=== PATIENT | male | born 1985 | race African-American/Black ===

== ENCOUNTER 2020-09-26 17:14 | Inpatient (IN) | payer OTHER ==
[~2020-09-26] VITALS: Ht 165.1 cm; Wt 59.5 kg
[2020-09-26 17:22] VITALS: BP 119/76
[2020-09-26 18:05] LABS: BASO % 0.2 % (0.0-1.0); HEMATOCRIT 40.9 % (42.0-52.0); LYMPH # 1.2 10*3/uL (1.3-4.4); LYMPH % 22.8 % (27.0-41.0); MEAN CELL VOLUME 87.2 fl (80.0-94.0); MEAN CORPUSCULAR HGB 28.4 pg (27.0-31.0); MEAN CORPUSCULAR HGB CONC 32.5 g/dl (33.0-37.0); MEAN PLATELET VOLUME 9.7 fl (9.6-12.3); MONO # 0.3 10*3/uL (0.1-1.0); MONO % 6.5 % (3.0-9.0); NEUT # 3.7 10*3/uL (2.3-7.9); NEUT % 70.3 % (47.0-73.0); PLATELET COUNT AUTOMATED 295 10*3/uL (130-400); RED BLOOD COUNT 4.69 10*6/uL (4.50-5.90); RED CELL DISTRI WIDTH 14.4 % (0-14.5); WHITE BLOOD COUNT 5.2 10*3/uL (4.8-10.8)
[2020-09-26 18:23] LABS: ALBUMIN 3.7 gm/dl (3.1-4.5); BUN 13 mg/dl (7-24); CHLORIDE 103 mmol/L (98-107); CREATININE 1.05 mg/dL (0.70-1.30); POTASSIUM 4.3 mmol/L (3.5-5.1); SGOT/AST 44 IU/L (3-35); SGPT/ALT 39 U/L (12-78); SODIUM 139 mmol/L (136-145)
[2020-09-26 18:25] LABS: ALKALINE PHOSPHATASE 81 U/L (45-117); TOTAL PROTEIN 8.2 gm/dL (6.4-8.2)
[2020-09-26 18:39] LABS: BILIRUBIN Negative (Negative); BLOOD Negative (Negative); CLARITY Clear (Clear); COLOR Dark Yellow (Yellow); GLUCOSE Negative (Negative); KETONE Trace (Negative); LEUKO ESTERASE Trace (Negative); NITRITE Negative (Negative); SPECIFIC GRAVITY 1.025 (1.001-1.030)
[2020-09-26 18:44] LABS: URINE AMPHETAMINES < 1000 (1000ng/ml); URINE BARBITURATES < 200 (200ng/ml); URINE BENZODIAZEPINES < 200 (200ng/ml); URINE CANNABINOIDS (THC) < 50 (50ng/ml); URINE COCAINE > 300 (300ng/ml); URINE METHADONE < 300 (300ng/ml); URINE OPIATES < 300 (300ng/ml)
[2020-09-26 18:48] LABS: URINE PHENCYCLIDINE < 25 (25ng/ml)
[2020-09-26 19:08] LABS: BACTERIA TRACE; EPITHELIAL CELLS 0-2; MUCOUS TRACE
[2020-09-26 20:00] VITALS: BP 118/63
[2020-09-26 21:25] VITALS: BP 118/63
[2020-09-27] VITALS: BP 118/63
[2020-09-27 08:00] VITALS: BP 125/72
== END 2020-09-27 08:40 | disposition left against medical advice (07) | DRG 137 ==
LOC: ED 17:14 → EDHOLD 18:19 → 4E 18:19
PROVIDERS: Nurse Practitioner; ADMIT Internal Medicine; ATTEND Internal Medicine
DX: U07.1 COVID-19 (principal); F11.23 Opioid dependence with withdrawal; E87.2 Acidosis; F14.90 Cocaine use, unspecified, uncomplicated; F17.210 Nicotine dependence, cigarettes, uncomplicated; R73.9 Hyperglycemia, unspecified; Z71.6 Tobacco abuse counseling; Z71.51 Drug abuse counseling and surveillance of drug abuser; Z82.49 Family history of ischemic heart disease and other diseases of the circulatory system; Z53.29 Procedure and treatment not carried out because of patient's decision for other reasons